=== PATIENT | male | born 1980 | race Caucasian/White ===

== ENCOUNTER 2016-11-04 16:37 | Emergency (ER) | payer SELFPAY ==
--- NOTE | 2016-11-04 17:36 | ER Document Report ---
ED Medical Screen (RME) - General Chief Complaint: Insect Bite Stated Complaint: POSSIBLE INSECT BITE/INSIDE LEFT THIGH Time Seen by Provider: 11/04/16 17:27 Notes: 35-year-old male presented to the emergency department for a possible insect bite and rash. Patient noticed the area on Thursday and has not gotten better. Patient denies seeing any insect cortex on his skin. Patient works outside. 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 Patient has not been on any recent antibiotics. Patient denies any fevers or chills. I have greeted and performed a rapid initial assessment of this patient. A comprehensive ED assessment and evaluation of the patient, analysis of test results and completion of the medical decision making process will be conducted by additional ED providers. TRAVEL OUTSIDE OF THE [place] IN LAST 30 DAYS: No - Related Data Allergies/Adverse Reactions: tramadol Allergy (Verified 11/04/16 17:26) Past Medical History Renal/ Medical History: Denies: Hx Peritoneal Dialysis Physical Exam - Vital signs Vitals: Temp Pulse Resp BP Pulse Ox 97.6 F 75 16 148/93 H 99 11/04/16 16:48 11/04/16 16:48 11/04/16 16:48 11/04/16 16:48 11/04/16 16:48 - Notes Notes: GENERAL: Alert, interacts well. No acute distress. LUNGS: Clear to auscultation bilaterally. No wheezes, rales, rhonchi. No respiratory distress. HEART: Regular rate and rhythm. No murmurs, gallops or rubs. SKIN: Bulls eye type rash to the left medial upper thigh, 10 cm in diameter with pinpoint central pustule. Course - Vital Signs Vital signs: Temp Pulse Resp BP Pulse Ox 97.6 F 75 16 148/93 H 99 11/04/16 16:48 11/04/16 16:48 11/04/16 16:48 11/04/16 16:48 11/04/16 16:48 - Laboratory Result Diagrams: 11/04/16 17:50 Laboratory results interpreted by me: 11/04/16 17:50 MCH 26.7 L RDW 15.7 H Scribe Documentation - Scribe Written by Sahrae:: Flaquito Parker, 11/04/2016 3082 acting as scribe for :: Pilar
[2016-11-04 18:09] LABS: ABSOLUTE BASOPHILS # (AUTO) 0.1 10^3/uL (0.0-0.2); ABSOLUTE EOSINOPHILS # (AUTO) 0.1 10^3/uL (0.0-0.6); ABSOLUTE LYMPHOCYTES (AUTO) 2.8 10^3/uL (0.5-4.7); ABSOLUTE MONOCYTES (AUTO) 0.5 10^3/uL (0.1-1.4); ABSOLUTE NEUT (AUTO) 4.6 10^3/uL (1.7-8.2); BASOPHILS % (AUTO) 0.8 % (0-2); EOSINOPHILS % (AUTO) 1.5 % (0-6); HEMATOCRIT 41.2 % (37.9-51.0); HEMOGLOBIN 13.7 g/dL (13.5-17.0); HGB HCT DIFFERENCE -0.1; LYMPHOCYTES % (AUTO) 34.4 % (13-45); MEAN CORPUSCULAR HEMOGLOBIN 26.7 pg (27.0-33.4); MEAN CORPUSCULAR HGB CONC 33.1 g/dL (32.0-36.0); MEAN CORPUSCULAR VOLUME 81 fl (80-97); MONOCYTES % (AUTO) 6.7 % (3-13); RED BLOOD COUNT 5.11 10^6/uL (4.35-5.55); RED CELL DISTRIBUTION WIDTH 15.7 % (11.5-14.0); SEGMENTED NEUTROPHILS % (AUTO) 56.6 % (42-78); WHITE BLOOD COUNT 8.2 10^3/uL (4.0-10.5)
--- NOTE | 2016-11-04 19:46 | ER Document Report ---
HPI - HPI Patient complains to provider of: rash from tickbite Onset: Last week Onset/Duration: Gradual Pain Level: 3 Context: 35-year-old male with pink circumferential rash extending outward from imbedded tick bite last week. No fever or chills. Associated Symptoms: None Exacerbated by: Denies Relieved by: Denies Similar symptoms previously: No Recently seen / treated by doctor: No - ROS ROS below otherwise negative: Yes Systems Reviewed and Negative: Yes All other systems reviewed and negative - DERM Skin Color: Normal Past Medical History - General Information source: Patient - Social History Smoking Status: Current Every Day Smoker Frequency of alcohol use: None Drug Abuse: None Lives with: Family Family History: Reviewed & Not Pertinent Patient has suicidal ideation: No Patient has homicidal ideation: No Renal/ Medical History: Denies: Hx Peritoneal Dialysis Vertical Provider Document - CONSTITUTIONAL Exam Limitations: No Limitations General Appearance: No Apparent Distress - INFECTION CONTROL TRAVEL OUTSIDE OF THE [place] IN LAST 30 DAYS: No - HEENT HEENT: Normal ENT Exam - NECK Neck: Supple - RESPIRATORY Respiratory: Breath Sounds Normal, No Respiratory Distress O2 Sat by Pulse Oximetry: 99 - CARDIOVASCULAR Cardiovascular: Regular Rate, Regular Rhythm - MUSCULOSKELETAL/EXTREMETIES Musculoskeletal/Extremeties: MAEW, FROM, Non-Tender - NEURO Level of Consciousness: Awake, Alert - DERM Integumentary: Rash - erythema migrans frash left anterior mid thigh, extending outward from tick bite site. Course - Re-evaluation Re-evalutation: 11/04/16 19:51 CBC is normal and Lyme titer is pending - Vital Signs Vital signs: Temp Pulse Resp BP Pulse Ox 97.6 F 75 16 148/93 H 99 11/04/16 16:48 11/04/16 16:48 11/04/16 16:48 11/04/16 16:48 11/04/16 16:48 - Laboratory Result Diagrams: 11/04/16 17:50 Laboratory results interpreted by me: 11/04/16 17:50 MCH 26.7 L RDW 15.7 H Discharge - Discharge Clinical Impression: Erythema migrans (Lyme disease) Condition: Good Disposition: HOME, SELF-CARE Instructions: Doxycycline ([facility]), Lyme Disease ([facility]) Additional Instructions: to er if worse finish the doxycycline for the fulol 10 day Prescriptions: Doxycycline Hyclate 100 mg PO BID #20 tablet Forms: Return to Work
[2016-11-04] MEDS ORDERED: DOXYCYCLINE HYCLATE 100 MG TABLET PO ONE (19:47)
[2016-11-04 21:01] VITALS: BP 136/96
[2016-11-06 15:13] LABS: LYME DISEASE IGG AND IGM AB <0.91 ISR (0.00-0.90)
== END 2016-11-04 20:20 | disposition home or self-care (01) ==
LOC: ER 16:37
DX: A69.20 Lyme disease, unspecified (principal); A26.0 Cutaneous erysipeloid; W57.XXXA Bitten or stung by nonvenomous insect and other nonvenomous arthropods, initial encounter; F17.200 Nicotine dependence, unspecified, uncomplicated
CPT/HCPCS: 36415; 85025; 86617; 86618; 99282